=== PATIENT | female | born 1970 | race Caucasian/White ===

== ENCOUNTER 2022-09-25 13:37 | Emergency (ER) | payer OTHER ==
[2022-09-25 14:12] VITALS: BP 94/70; PULSE 84; RESP 20; TEMP 98; BMI 19.3
[2022-09-25] MEDS ORDERED: IBUPROFEN 600 MG TABLET (FP) PO ONE ×2 (14:58→15:00)
[2022-09-25] MEDS ORDERED: ACETAMINOPHEN 500 MG TABLET (FP) PO ONE (14:59)
[2022-09-25] MEDS ORDERED: ACETAMINOPHEN 500 MG TABLET (FP) ONE (15:00)
== END 2022-09-25 15:32 | disposition home or self-care (01) ==
LOC: JERFT 13:37
DX: N61.1 Abscess of the breast and nipple (principal)
CPT/HCPCS: 99283-25

== ENCOUNTER 2023-08-09 10:30 | Emergency (ER) | payer OTHER ==
[2023-08-09 10:39] VITALS: BP 131/89; PULSE 91; RESP 18; TEMP 98; BMI 18.5
[2023-08-09] MEDS ORDERED: CYCLOBENZAPRINE HCL 10 MG TABLET (FP) PO ONE (11:33)
[2023-08-09] MEDS ORDERED: KETOROLAC TROMETHAMINE 30 MG/1 ML VIAL IM ONE (11:33)
[2023-08-09] MEDS ORDERED: CYCLOBENZAPRINE HCL 10 MG TABLET (FP) ONE (11:37)
[2023-08-09] MEDS ORDERED: KETOROLAC TROMETHAMINE 30 MG/1 ML VIAL ONE (11:37)
== END 2023-08-09 13:49 | disposition home or self-care (01) ==
LOC: JER 10:30 → JERFT 10:30
PROC: 3E0233Z Introduction of Anti-inflammatory into Muscle, Percutaneous Approach (ICD-10-PCS; principal; 2023-08-09)
DX: R68.84 Jaw pain (principal); M26.603 Bilateral temporomandibular joint disorder, unspecified
CPT/HCPCS: 99284-25